=== PATIENT | male | born 1945 | race Caucasian/White ===

== ENCOUNTER → 2016-10-19 | Outpatient (CLI) | payer OTHER ==
[~2016-10-19] MED LIST: ADULT LOW DOSE81 MG PO; APIDRA SQ; GLUCOPHAGE XR500 MG PO; LANTUSSOLASTAR SUBQ; LISINOPRIL10 MG PO; SIMVASTATIN40 MG PO; TOPROL XL50 MG PO; TUMS E.S.750 MG PO
== END ==
LOC: ULTRA 15:27
DX: I73.9 Peripheral vascular disease, unspecified (principal); I25.10 Atherosclerotic heart disease of native coronary artery without angina pectoris; I65.21 Occlusion and stenosis of right carotid artery; I65.22 Occlusion and stenosis of left carotid artery